=== PATIENT | female | born 1940 | race Caucasian/White ===

== ENCOUNTER 2020-04-13 17:17 | Emergency (ER) | payer MEDICARE, SELFPAY ==
[2020-04-13 17:19] VITALS: BP 141/78; PULSE 95; RESP 18; TEMP 36.6; O2SAT 98; BMI 21.2
--- NOTE | 2020-04-13 17:35 | CT_ITS ---
STUDY: CT ABDOMEN AND PELVIS WITHOUT CONTRAST REASON FOR EXAM: Female, 79 years old. RT FLANK PAIN X 1 DAY RADIATION DOSAGE (If Supplied By Facility): CTDIvol = ( 6.25 ) mGy, DLP = ( 277.73 ) mGycm TECHNIQUE: Transaxial images were obtained from the dome of the diaphragm to the symphysis pubis without oral contrast, and without intravenous contrast. Sagittal and coronal images were reconstructed. Individualized dose optimization techniques were used for this CT. COMPARISON: 03/16/2012. FINDINGS: Calcified granuloma in the right lower lobe. Heart size is normal. Calcified right inferior hilar nodes. The liver is unremarkable. The gallbladder is unremarkable. The spleen and pancreas are unremarkable. The adrenal glands are normal. The kidneys are unremarkable. No stones or hydronephrosis. Ureters are normal in course and caliber. No ureteral stones. The aorta is normal in caliber. There is no free fluid, free air or organized collection. No bowel obstruction or inflammatory change. Diverticulosis. No acute diverticulitis. Moderate stool burden. Urinary bladder is unremarkable. Normal abdominal wall. Chronic T9 compression fracture status post vertebral plasty. Small L4-L5 disc protrusion. 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 CT/Abdomen/Pelvis without Cont IMPRESSION: 1. No acute findings. No renal stones or obstructive uropathy. 2. Diverticulosis, no acute diverticulitis. 3. Old granulomatous disease. 4. 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 Additional chronic findings are noted above. Electronically Signed: Sandra Chopra MD at 19:03 EDT Tel , Service support ,
--- NOTE | 2020-04-13 17:36 | ED.DCSUM_ITS ---
- ER Visit Summary Date of Service: 04/13/20 Chief Complaint: [Flank pain] History of Present Illness: The patient is a 79 F [presents with complaint of right flank pain that started yesterday initially. Patient states that the pain came on suddenly but then went away. Today she took some prednisone that she was prescribed for poison raquel and this afternoon her pain became much more severe. She states that it feels like it starts in her right kidney area and radiates across her back and then to both sides of the lower abdomen. She denies nausea or vomiting. Patient states that the pain reminds her of the last time she had a kidney stone. Patient denies urinary symptoms. She denies fevers. She denies diarrhea. She denies blood in her stool or black tarry stool. Patient otherwise has no medical history.] Physical Examination: [HEENT-PERRLA, EOMI. Cranial nerves II through XII grossly intact. TMs clear. Mucous membranes moist. No adenopathy. Cardiovascular-regular rate and rhythm without murmur or ectopy Lungs-clear to auscultation, chest wall stable without crepitus or subcu emphysema Abdomen-normoactive bowel sounds, soft, nontender, no rebound or rigidity, no peritoneal signs. Patient does have CVA tenderness on the right. Back exam-no tenderness over the thoracic or lumbar spine. No tenderness over the paraspinal musculature. Negative straight leg raises. Extremities-intact ?4, normal range of motion, normal pulses, atraumatic] Test Results: [CBC with differential showed a week and 11.3, hemoglobin 12.4, hematocrit 38. Chemistries unremarkable. LFTs were normal. Urinalysis was positive for nitrites as well as 0-5 WBCs and +2 bacteria. Lactate was normal at 1.8. CT flank essentially showed nothing acute.] Emergency Department Course and Treatment: Patient was treated with morphine as well as Zofran and Toradol on arrival. Patient had good pain relief with that. Patient was given Bactrim 1 tablet p.o. Urine culture was sent.] Treatment Plan: [Patient will be treated with Bactrim for 3 days for questionable urine. This point etiology of her back pain is unclear I suspect it may be musculoskeletal in that it was positional at times. She will be given a prescription for [place] for pain. Patient advised to follow-up with her primary care physician 3 to 5 days. Patient advised to return if worsening pain, fever, vomiting, or condition should worsen anyway.] Disposition: [Discharged home in stable condition] Impression: [Back pain-etiology uncertain UTI] This note was generated with [employer] dictation software. It may contain incorrect words, spelling, and punctuation that were not noted in review of the chart prior to signing ED Disposition - Plan for ED Patient: Referrals: Arthur Magaña MD [STAFF PHYSICIAN] -
[2020-04-13 18:04] LABS: Absolute Lymphocyte Count 0.77 X10^3/uL (0.83-4.51); Absolute Neutrophil Count 10.3 X10^3/uL (2.0-7.7); Basophil# 0.01 X10^3/uL; Basophil% 0.1 % (0-1); Hematocrit 38.2 % (37-47); Hemoglobin 12.4 g/dL (12.0-15.0); Lymphocyte # 0.77 X10^3/ul (4.0); Lymphocyte % 6.8 % (19-41); Mean Corp Hgb Conc 32.5 g/dL (32-36); Mean Corpuscular Hgb 28.4 pg (27.0-32.0); Mean Corpuscular Volume 87.4 fL (81-99); Mean Platelet Vol. 9.8 fl (6.2-12.0); Monocyte# 0.16 X10^3/uL; Monocyte% 1.4 % (0-10); NRBC Flagged by Analyzer 0 % (0-5); Neutrophil # 10.28 X10^3/uL (2.7-7.7); Neutrophil % 90.7 % (47-70); Platelet Count 325 K/mm3 (150-450); RBC Distribution Width CV 13.5 % (11.6-14.6); RBC Distribution Width SD 43.3 fl (35.1-43.9); Red Blood Count 4.37 M/mm3 (4.2-5.4); White Blood Count 11.3 K/mm3 (4.4-11.0)
[2020-04-13 18:19] LABS: ALB/GLOB Ratio 0.9 RATIO (0.9-2.4); AST(SGOT) 24 U/L (15-37); Alanine Aminotransfer ALT/SGPT 20 U/L (13-56); Albumin, Serum 3.8 g/dL (3.2-5.0); Alkaline Phosphatase 57 U/L (45-117); Anion Gap 6 (5-15); BUN 21 mg/dL (7-18); BUN/Creat Ratio 18.4 RATIO (10-20); Calcium,Total 9.4 mg/dL (8.5-10.1); Chloride 102 mmol/L (98-107); Creatinine, Serum 1.14 mg/dL (0.55-1.02); EST Glomerular Filtration Rate 49 mL/min (>60); Est Glom Filt Rate - Afr Amer 59 mL/min (>60); Estimated Creatinine Clearance 32.69 ml/min; Globulin 4.4 g/dL (2.2-4.2); Glucose 130 mg/dL (74-106); Potassium 3.9 mmol/L (3.5-5.1); Protein, Total 8.2 g/dL (6.4-8.2); Sodium Level 137 mmol/L (136-145)
[2020-04-13 18:19] LABS: Mucous, Urine 0 SEEN /hpf (<or=2+); Red Blood Cells-Urine 0 SEEN /hpf (0-5); Squamous Epithelial Cells - UA 0 SEEN /hpf (5-10)
[2020-04-13 18:23] LABS: Color, Urine Yellow (Yellow); Glucose, Dipstick Normal (Normal); Ketone-Dipstick Negative (Negative); Leukocyte Esterase-Dipstick 25 /ul (Negative); Nitrite-Dipstick Positive (Negative); Occult Blood-Urine Negative /ul (Negative); Protein-Dipstick Negative (Negative); Urine Bilirubin Dipstick Negative (Negative); Urine Clarity Clear (Clear); Urine Urobilinogen Normal (Normal); Urine pH 6.5 (5.0 - 8.0)
[2020-04-13] MEDS: Ketorolac 30 MG/ML Syringe 15 MG IV (18:24)
[2020-04-13] MEDS: 0.9% Normal Saline 1,000 ML 125 ML IV (18:24)
[2020-04-13 18:44] LABS: Bacteria 2+ /hpf (None Seen); White Blood Cells 0-5 SEEN /hpf (0-5)
--- NOTE | 2020-04-13 19:16 | DCINST.ED_ITS ---
ED Disposition - Plan for ED Patient: Instructions: ED Flank Pain Uncertain Cause, ED Neck Back Pain General Prescriptions: Smz/Tmp Ds [Bactrim Ds] 1 tab PO BID #6 tab Prescription Printed Hydrocodone Bitart/Apap 5-325 [[place] 5MG-325MG] 1 tab PO Q4H PRN PRN 2 Days #10 tab PRN Reason: Pain Prescription Printed Referrals: Arthur Magaña MD [STAFF PHYSICIAN] - Thee Amado MD [Primary Care Provider] - 3-5 Days
[2020-04-13 19:32] VITALS: BP 136/65; PULSE 70; RESP 16
--- NOTE | 2020-04-13 19:36 | DCINST.ED_ITS ---
ED Disposition - Plan for ED Patient: Instructions: ED Flank Pain Uncertain Cause, ED Neck Back Pain General Prescriptions: Smz/Tmp Ds [Bactrim Ds] 1 tab PO BID #6 tab Prescription Printed Cephalexin [Keflex] 500 mg PO Q8 #28 cap Transmission Status: Pending to [id number] Hydrocodone Bitart/Apap 5-325 [[place] 5MG-325MG] 1 tab PO Q4H PRN PRN 2 Days #10 tab PRN Reason: Pain Prescription Printed Referrals: Arthur Magaña MD [STAFF PHYSICIAN] - Thee Amado MD [Primary Care Provider] - 3-5 Days
[2020-04-13] MEDS: Cephalexin 250 MG Capsule 500 MG PO (19:43)
== END 2020-04-13 19:45 | disposition home or self-care (01) ==
LOC: ED 18:36
PROVIDERS: Emergency Provider Emergency Medicine; PCP Internal Medicine
DX: N39.0 Urinary tract infection, site not specified (principal); M54.9 Dorsalgia, unspecified
CPT/HCPCS: 74176; 80053; 81001; 85025; 87077; 87086; 87088; 87186; 96361; 96374; 96375; 99283; J7030; A4216; J2405